=== PATIENT | female | born 2000 | race Caucasian/White ===

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

== ENCOUNTER 2022-02-19 12:43 | Outpatient (REF) | payer BC, SELFPAY ==
[2022-02-20 15:01] LABS: Chlamydia Result Negative (Negative); GC Result Negative (Negative)
== END 2022-02-19 12:44 | disposition home or self-care (01) ==
LOC: LBN 12:43
PROVIDERS: Visit Provider Nurse Practitioner Women's Health
DX: Z11.3 Encounter for screening for infections with a predominantly sexual mode of transmission (principal)
CPT/HCPCS: 87491; 87591